=== PATIENT | female | born 1945 | race Caucasian/White ===

== ENCOUNTER 2020-02-17 11:00 | Outpatient (RCR) | payer MEDICARE, SELFPAY | END 2020-02-17 11:05 | disposition home or self-care (01) | LOC: PT 11:00 | PROVIDERS: Visit Provider Psychiatry & Neurology Neurology | DX: M25.552 Pain in left hip (principal); M25.551 Pain in right hip; M54.5 Low back pain; E55.9 Vitamin D deficiency, unspecified | CPT/HCPCS: 97010; 97014; 97110; 97112; 97163; G0283 ==

== ENCOUNTER 2020-06-05 15:30 | Outpatient (RCR) | payer MEDICARE, SELFPAY | END 2020-06-05 15:35 | disposition home or self-care (01) | LOC: PT 15:30 | PROVIDERS: Visit Provider Psychiatry & Neurology Neurology | DX: M54.5 Low back pain (principal); M25.552 Pain in left hip; M25.551 Pain in right hip | CPT/HCPCS: 97110; 97112; 97163; 97164 ==